=== PATIENT | male | born 1965 | race Caucasian/White ===

== ENCOUNTER 2017-02-04 17:36 | Emergency (ER) | payer BC ==
[~2017-02-04] VITALS: Ht 170.2 cm; Wt 96.8 kg
[2017-02-04 18:40] LABS: MCH 28.4 PG (29.0-34.0); MCHC 34.5 G/DL (30.0-36.0); MCV 82.2 FL (86-99); MEAN PLAT.VOLUME 10.5 uM^3 (9.0-12.4); PLATELET COUNT 245 K/uL (156-360); RBC DIS.WIDTH-CV 13.1 % (11.8-14.6); RBC DIS.WIDTH-SD 38.9 % (39-53); RED BLOOD COUNT 5.11 M/uL (4.00-5.50); WHITE BLOOD COUNT 8.4 K/uL (4.1-10.2)
[2017-02-04 18:51] LABS: CHLORIDE 106 mEq/L (99-109); POTASSIUM 3.8 mEq/L (3.7-5.4); SODIUM 138 mEq/L (136-147)
[2017-02-04 18:52] LABS: GLUCOSE 97 mg/dL (70-99)
[2017-02-04 18:54] LABS: ANION GAP 7 MEQ/L (2-14)
[2017-02-04 18:57] LABS: GFR ESTIMATE (CALCULATED) > 59 mL/min/; UREA NITROGEN (BUN) 6 mg/dL (9-23)
[2017-02-04 19:00] LABS: TROP-I INTERPRETATION NEGATIVE; TROPONIN-I < 0.01 ng/mL (0.0-0.30)
[2017-02-04 20:30] LABS: TROP-I INTERPRETATION NEGATIVE; TROPONIN-I 0.01 ng/mL (0.0-0.30)
[2017-02-04] MEDS ORDERED: ZANTAC150 MG PO (21:42)
[2017-02-04 22:03] VITALS: BP 119/73
== END 2017-02-04 22:05 | disposition home or self-care (01) ==
LOC: EME 17:36
PROVIDERS: Emergency Medicine
DX: M54.6 Pain in thoracic spine (principal); K29.00 Acute gastritis without bleeding; I25.2 Old myocardial infarction; Z95.5 Presence of coronary angioplasty implant and graft
CPT/HCPCS: 71020; 71275; 80048; 84484; 85027; 93005; 99281; 99284; J1885; J2270